=== PATIENT | male | born 2000 | race Caucasian/White ===

== ENCOUNTER 2023-01-10 13:24 | Emergency (ER) | payer OTHER ==
[2023-01-10] MEDS ORDERED: Bacitracin Oint 1 GM U/D Packet TOP ONE (13:48)
[2023-01-10] MEDS ORDERED: Lidocaine 1% 5 ML VIAL INJECT ONE (13:48)
== END 2023-01-10 14:21 | disposition home or self-care (01) ==
LOC: JP.ED 13:24
DX: S61.012A Laceration without foreign body of left thumb without damage to nail, initial encounter (principal); W26.8XXA Contact with other sharp object(s), not elsewhere classified, initial encounter
CPT/HCPCS: 12002; 99282; 99283

== ENCOUNTER 2024-10-17 13:08 | Emergency (ER) | payer SELFPAY ==
[2024-10-17] MEDS: Diphtheria,Pertussis(Acell),Tetanus Vaccine 0.5 ML Syringe IM ONE (16:47)
== END 2024-10-17 16:55 | disposition home or self-care (01) ==
LOC: JP.ED 13:08
DX: S01.551A Open bite of lip, initial encounter (principal); W54.0XXA Bitten by dog, initial encounter; Z23 Encounter for immunization
CPT/HCPCS: 90471; 90715; 99283-25